=== PATIENT | male | born 1990 | race Two or more races ===

== ENCOUNTER 2024-08-12 08:19 | Emergency (ER) | payer MEDICAID, OTHER ==
[~2024-08-12] VITALS: Ht 177.8 cm; Wt 75.0 kg
--- NOTE | 2024-08-12 08:36 | ECG ---
[facility] Test Date: 2024-08-12 Test Time: 08:25:16 Pat Name: CANDICE ROY Department: ER Room: Gender: M Transport Specialist: ANNETTE : 1990 Requested By: JULIA TONY Order Number: [id number] Reading MD: Damián Palomino Measurements Intervals [place] Rate: 73 P: 0 [place]: 0 QRS: 21 QRSD: 108 T: 73 QT: 411 QTc: 453 Interpretive Statements Normal sinus rhythm RSR' in V1 or V2, probably normal variant Electronically Signed On 08-18-2024 16:42:36 PST by Damián Palomino Please click the below link to view image of tracing.
[2024-08-12] MEDS: SODIUM CHLORIDE 0.9% 1,000 ML IV ONE (08:46)
--- NOTE | 2024-08-12 08:50 | ED.PDOC ---
History of Present Illness HPI Comments 34Y M with PMHx HTN and alcoholic ketoacidosis presents to ED via EMS for chief complaint syncope episode. Pt had 8 beers and 1 mixed drink last night without dinner. Pt then woke up this morning and had syncope episode while in the shower. Upon EMS arrival, pt's girlfriend had taken patient out of the shower. Pt drank fruit punch and BS was 82 with EMS. Pt states he has not been able to keep food down and does not know if he is diabetic. Pt does not take any medications for his HTN. VS were stable with EMS. Pt is an ex-cigarette smoker and currently vapes. Pt denies illicit drug use. Chief Complaint: Syncope Time Seen by MD: 08:30 Reviewed Notes: Medications, Allergies Allergies: Coded Allergies: Penicillins (Verified Allergy, Unknown, 08/12/24) Information Source: Patient, Emergency Med Personnel Mode of Arrival: EMS Severity: Moderate Timing: Hours Duration: Since onset Prehospital treatment: None Past Medical History PAST MEDICAL HISTORY: HTN Past Medical History (Other): Alcoholic ketoacidosis Surgical History: Denies all surgeries Family History Family History: Unknown Social History Smoker: Quit Less Than 1 Year, Cigarettes, Other (currently vapes) Alcohol: Heavy Drugs: Denies Drug Use Lives In: Home Constitutional: denies: chills, diaphoresis, fatigue, fever, malaise, sweats, weakness, others EENTM: denies: blurred vision, double vision, ear bleeding, ear discharge, ear drainage, ear pain, ear ringing, eye pain, eye redness, hearing loss, mouth pain, mouth swelling, nasal discharge, nose bleeding, nose congestion, nose pain, photophobia, tearing, throat pain, throat swelling, voice changes, others Respiratory: denies: cough, hemoptysis, orthopnea, SOB at rest, shortness of breath, SOB with excertion, stridor, wheezing, others Cardiovascular: denies: chest pain, dizzy spells, diaphoresis, Dyspnea on exertion, edema, irregular heart beat, left arm pain, lightheadedness, palpitations, PND, syncope, others Gastrointestinal: denies: abdomen distended, abdominal pain, blood streaked bowels, constipated, diarrhea, dysphagia, difficulty swallowing, hematemesis, melena, nausea, poor appetite, poor fluid intake, rectal bleeding, rectal pain, vomiting, others Genitourinary: denies: burning, dysuria, flank pain, frequency, hematuria, incontinence, penile discharge, penile sore, pain, testicle pain, testicle swelling, urgency, others Neurological: denies: dizziness, fainting, headache, left sided numbness, left sided weakness, numbness, paresthesia, pre-existing deficit, right sided numbn ess, right sided weakness, seizure, speech problems, tingling, tremors, weakness, others Musculoskeletal: denies: back pain, gout, joint pain, joint swelling, muscle pain, muscle stiffness, neck pain, others Integumetry: denies: bruises, change in color, change in hair/nails, dryness, laceration, lesions, lumps, rash, wounds, others Allergic/Immunocompromised: denies: Difficulty Healing, Frequent Infections, Hives, Itching, others Hematologic/Lymphatic: denies: anemia, blood clots, easy bleeding, easy bruising, swollen glands, others Endocrine: denies: excessive hunger, excessive sweating, excessive thirst, excessive urination, flushing, intolerance to cold, intolerance to heat, unexplained weight gain, unexplained weight loss, others Psychiatric: denies: anxiety, bipolar disorder, depression, hopeless, panic disorder, schizophrenia, sleepless, suicidal, others All Other Systems: Reviewed and Negative Physical Exam General Appearance: Mild Distress, Normal HEENT: Normal ENT Inspection, Pharynx Normal, TMs Normal Neck: Full Range of Motion, Non-Tender, Normal, Normal Inspection Respiratory: Chest Non-Tender, Lungs Clear, No Accessory Muscle Use, No Respiratory Distress, Normal Breath Sounds Cardiovascular: No Edema, No JVD, No Murmur, No Gallop, Normal Peripheral Pulses, Regular Rate/Rhythm Breast Exam: Deferred Gastrointestinal: No Organomegaly, Non Tender, No Pulsatile Mass, Normal Bowel Sounds, Soft Genitalia: Deferred Pelvic: Deferred Rectal: Deferred Extremities: No calf tenderness, Normal capillary refill, Normal inspection, Normal range of motion, Non-tender, No pedal edema Musculoskeletal : Apperance: Normal Neurologic: Alert, information security engineer II-XII nml as Tested, No Motor Deficits, Normal Affect, Normal Mood, No Sensory Deficits Cerebellar Function: NOT DONE Reflexes: NOT DONE Skin: Dry, Normal Color, Warm Peripheral Pulses: 3+ Radial (R), 3+ Radial (L) Lymphatic: No Adenopathy Was a procedure done? Was a procedure done?: No Differential Dx Considerations may include: Alcohol abuse Electrolyte imbalance X-Ray, Labs, Meds, VS Vital Signs Date Time Temp Pulse Resp B/P (MAP) Pulse Ox O2 Delivery O2 Flow Rate FiO2 08/12/24 11:09 73 17 99 Room Air* 0 21 08/12/24 11:09 97.5 73 17 114/65 (81) 99 97.5 08/12/24 08:25 73 08/12/24 08:19 98.6 80 16 111/71 (84) 98 Lab Test 08/12/24 09:46 Range/Units Plasma/Serum Blood Alcohol 35.7 H <10 mg/dL Current Medications Medications (Trade) Dose Ordered Sig/Ayana Route Start Time Stop Time Status Last Admin Sodium Chloride 1,000 ml @ 1,000 mls/hr Q1H ONCE IV 08/12/24 08:45 08/12/24 09:44 DC 08/12/24 08:46 Thiamine HCl 100 mg ONCE ONCE IV 08/12/24 09:00 08/12/24 09:01 DC 08/12/24 09:14 Ondansetron HCl (Zofran) 4 mg ONCE ONCE IV 08/12/24 09:15 08/12/24 09:16 DC 08/12/24 09:20 Patient alert. Complaining of shaking. He does drink daily. Vitals stable. Answering all questions. Establish intravenous access. Was given fluids. Was given thiamine. Possible withdrawal. No leg swelling. No shortness a breath. Heart rate within normal limits. Counseled patient on effects of drinking for 15 minutes. He does vape. Counseled patient on effects of smoking for 15 minutes. Reviewed his history. No head injury. No sign of syncope. Possible dehydration. Possible excess use of alcohol. Explained to the patient. Was told to follow up with his primary care physician. Was told to come back if there is any problem. Time of 1ST Reevaluation: 09:00 Reevaluation 1ST: Unchanged Patient Education/Counseling: Diagnosis, Treatment Family Education/Counseling: No Family Present Departure 1 Departure Time of Disposition: 09:42 Impression: Primary Impression: Alcohol abuse Disposition: 01 HOME / SELF CARE / HOMELESS Condition: Good Discharged With: Self Critical Care Note Critical Care Time?: No Stability Stability form required: No Heart Score Heart Score: Heart Score Response (Comments) Value History Slightly Suspicious 0 EKG Normal 0 Age <45 0 Risk Factors 1 or 2 risk factors 1 Troponin Normal limit 0 Total 1 I personally scribed for JULIA TONY MD ([email or web address]) on 08/12/24 at 08:50. Electronically submitted by Jayne Sutton ([email or web address]). JULIA TONY MD Aug 12, 2024 08:50
[2024-08-12] MEDS: THIAMINE 100mg/ml INJ (200mg/2ml VIAL) IV ONE (09:14)
[2024-08-12] MEDS: ONDANSETRON HCL 4 MG/2 ML VIAL IV ONE (09:20)
[2024-08-12 11:09] VITALS: BP 114/65; PULSE 73; RESP 17; TEMP 97.5; O2SAT 99
== END 2024-08-12 11:46 | disposition home or self-care (01) ==
LOC: ER 08:19 → EDBD 08:19 → ER 11:46
DX: F10.10 Alcohol abuse, uncomplicated (principal); I10 Essential (primary) hypertension; Z87.891 Personal history of nicotine dependence; Z88.0 Allergy status to penicillin; Y90.0 Blood alcohol level of less than 20 mg/100 ml
CPT/HCPCS: 36415; 80320; 93005; 96361; 96374; 96375; 99284; J2405; J3411; J7030

== ENCOUNTER 2024-12-31 17:21 | Emergency (ER) | payer MEDICAID ==
[~2024-12-31] VITALS: Ht 177.8 cm; Wt 73.2 kg
[2024-12-31 17:25] VITALS: BP 122/81; PULSE 82; RESP 20; TEMP 98.4; O2SAT 98
[2024-12-31] MEDS: LIDOCAINE 1% HCL (LOCAL ANESTH.) INJ 20ML MDV ID ONE (17:58)
[2024-12-31] MEDS: TETANUS-DIPTH-ACEL PERTUSSIS 0.5ML SYR Tdap IM ONE (17:59)
--- NOTE | 2024-12-31 18:22 | ED.PDOC ---
HPI Comments PATIENT CAME IN DUE TO LACERATION TO LEFT THUMB. PT STATES HE WASUSING A RAZOR BLADE TO CUT A ZIP TIE OFF A BOX WHEN HE ACCIDENTLYSLICED THE TIP OF HIS LEFT THUMB AND NAIL. DENIES NUMBNESS OR WEAKNESS. Chief Complaint: Laceration Time Seen by MD: 17:50 Primary Care Provider: NONE Reviewed Notes: Nurses Notes, Medications, Allergies Allergies: Coded Allergies: Penicillins (Verified Allergy, Unknown, 08/12/24) Home Meds Active Scripts Ibuprofen (Ibuprofen) 800 Mg Tab, 1 TAB PO TID PRN for 5 Days, #15 TAB Prov:SUZIE GRAY YARN SKEINS EXAMINER 12/31/24 Amoxicillin & Pot Clavulanate (AUGMENTIN TABLET) 875 Mg Tb, 875 MG PO BID for 5 Days, #10 TAB Prov:SUZIE GRAY YARN SKEINS EXAMINER 12/31/24 Information Source: Patient Mode of Arrival: Ambulatory Complexity: Intermediate Laceration Length (cm): 1 Past Medical History PAST MEDICAL HISTORY: HTN Surgical History: Denies all surgeries Family History Family History: Unknown Social History Smoker: Quit Less Than 1 Year, Cigarettes, Other Alcohol: Heavy Drugs: Denies Drug Use Lives In: Home Constitutional: denies: chills, diaphoresis, fatigue, fever, malaise, sweats, weakness, others EENTM: denies: blurred vision, double vision, ear bleeding, ear discharge, ear drainage, ear pain, ear ringing, eye pain, eye redness, hearing loss, mouth pain, mouth swelling, nasal discharge, nose bleeding, nose congestion, nose pain, photophobia, tearing, throat pain, throat swelling, voice changes, others Respiratory: denies: cough, hemoptysis, orthopnea, SOB at rest, shortness of breath, SOB with excertion, stridor, wheezing, others Cardiovascular: denies: chest pain, dizzy spells, diaphoresis, Dyspnea on exertion, edema, irregular heart beat, left arm pain, lightheadedness, palpitations, PND, syncope, others Gastrointestinal: denies: abdomen distended, abdominal pain, blood streaked bowels, constipated, diarrhea, dysphagia, difficulty swallowing, hematemesis, melena, nausea, poor appetite, poor fluid intake, rectal bleeding, rectal pain, vomiting, others Genitourinary: denies: burning, dysuria, flank pain, frequency, hematuria, incontinence, penile discharge, penile sore, pain, testicle pain, testicle swelling, urgency, others Neurological: denies: dizziness, fainting, headache, left sided numbness, left sided weakness, numbness, paresthesia, pre-existing deficit, right sided numbness, right sided weakness, seizure, speech problems, tingling, tremors, weakness, others Musculoskeletal: denies: back pain, gout, joint pain, joint swelling, muscle pain, muscle stiffness, neck pain, others Integumetry: reports: laceration (LEFT THUMB DISTAL TIP); denies: bruises, change in color, change in hair/nails, dryness, lesions, lumps, rash, wounds, others Allergic/Immunocompromised: denies: Difficulty Healing, Frequent Infections, Hives, Itching, others Hematologic/Lymphatic: denies: anemia, blood clots, easy bleeding, easy bruising, swollen glands, others Endocrine: denies: excessive hunger, excessive sweating, excessive thirst, excessive urination, flushing, intolerance to cold, intolerance to heat, unexplained weight gain, unexplained weight loss, others Psychiatric: denies: anxiety, bipolar disorder, depression, hopeless, panic disorder, schizophrenia, sleepless, suicidal, others Physical Exam General Appearance: No Apparent Distress, Normal HEENT: Pharynx Normal Neck: Full Range of Motion, Non-Tender Respiratory: Lungs Clear, No Respiratory Distress, Normal Breath Sounds Cardiovascular: No Murmur, Normal Peripheral Pulses, Regular Rate/Rhythm Breast Exam: Deferred Gastrointestinal: Non Tender, Soft Genitalia: Deferred Pelvic: Deferred Rectal: Deferred Extremities: Normal capillary refill, Non-tender Musculoskeletal : Apperance: Normal Neurologic: Alert, assistant offset press operator II-XII nml as Tested, No Motor Deficits, Normal Affect, Normal Mood, No Sensory Deficits Cerebellar Function: Normal Reflexes: Normal Skin: Dry, Lacerations (LEFT THUMB DISTAL ASPECT WITH HANGING OF VAULT TIP AND 1/3 OF NAIL AT THE TIP BLEEDING CONTROLLED NO OBVIOUS FOREIGN BODY STRENGTH SENSORY MOTION INTACT), Normal Color, Warm Lymphatic: No Adenopathy Was a procedure done? Was a procedure done?: Yes Sedation Sedation?: No Informed consent obtained: Yes Laceration Repair : Location DISTAL TIP OF THUMB LEFT Length AVULSION 1 CM Anesthetic: Lidocaine, Without epi Laceration Repair Prep: Saline, Betadine Laceration Repair Wound Comple: epidermis/dermis repair Laceration Repair: Number of sutures (3), Simple Informed consent obtained: Yes Risks, benefits, and alternati: Yes Notes PATIENT TOLERATED WELL WITH MINIMAL BLOOD LOSS. Differential diagnosis Generic Laceration: Hematoma, Fracture, Retained Foriegn Body X-Ray, Labs, Meds, VS Vital Signs Date Time Temp Pulse Resp B/P (MAP) Pulse Ox O2 Delivery O2 Flow Rate FiO2 12/31/24 17: 98.4 82 20 122/81 (95) 98 98.4 12/31/24 17:25 82 20 98 Room Air 12/31/24 17:25 98.4 82 20 122/81 (95) 98 98.4 Current Medications Medications (Trade) Dose Ordered Sig/Ayana Route Start Time Stop Time Status Last Admin Lidocaine HCl (Xylocaine 1%) ONCE ONCE ID 12/31/24 18:00 12/31/24 18:01 DC 12/31/24 17:58 Diphtheria/ Tetanus/Acell Pertussis (Boostrix T-Dap) 0.5 ml ONCE ONCE IM 12/31/24 18:00 12/31/24 18:01 DC 12/31/24 17:59 X-Ray, Labs, Meds, VS Comment SEE PROCEDURE NOTE. SCRIPT PROPHYLACTIC ANTIBIOTICS. AND IBUPROFEN. TAKE MEDICATIONS PRESCRIBED SIDE EFFECTS DISCUSSED. ADVISED TO FOLLOW UP WITH HIS PCP URGENT CARE OR BACK HERE IN 2 DAYS FOR WOUND RE-EVALUATION SUTURE REMOVAL IN 5-7 DAYS. KEEP DRESSING ON FOR 48 HOURS MONITOR FOR SIGNS AND SYMPTOMS OF UNCONTROLLED BLEEDING OR INFECTION AND RETURN TO THE ER IMMEDIATELY. PATIENT INDICATES UNDERSTANDING AGREES WITH DISCHARGE PLAN OF CARE. Time of 1ST Reevaluation: 18:26 Reevaluation 1ST: Improved Patient Education/Counseling: Diagnosis, Treatment, Prognosis, Need For Follow Up Family Education/Counseling: No Family Present Departure 1 Departure Time of Disposition: 18:24 Impression: Primary Impression: Laceration of thumb with damage to nail Qualified Codes: S61.112A - Laceration without foreign body of left thumb with damage to nail, initial encounter Disposition: HOME / SELF CARE / HOMELESS Condition: Stable e-Prescriptions Ibuprofen (Ibuprofen) 800 Mg Tab 1 TAB PO TID PRN for 5 Days, #15 TAB Prov: SUZIE GRAY YARN SKEINS EXAMINER 12/31/24 Amoxicillin & Pot Clavulanate (AUGMENTIN TABLET) 875 Mg Tb 875 MG PO BID for 5 Days, #10 TAB Prov: SUZIE GRAY 12/31/24 Discharged With: Self Critical Care Note Critical Care Time?: No Stability Stability form required: No SUZIE GRAY Dec 31, 2024 18:21
[2024-12-31] MEDS ORDERED: IBUP-1456 PO (18:25)
[2024-12-31] MEDS ORDERED: AUG875T PO (18:25)
== END 2024-12-31 18:38 | disposition home or self-care (01) ==
LOC: ER 17:21
DX: S61.012A Laceration without foreign body of left thumb without damage to nail, initial encounter (principal); I10 Essential (primary) hypertension; Z79.899 Other long term (current) drug therapy; Z88.0 Allergy status to penicillin; W27.8XXA Contact with other nonpowered hand tool, initial encounter; Y93.89 Activity, other specified; Y92.89 Other specified places as the place of occurrence of the external cause; Y99.8 Other external cause status
CPT/HCPCS: 12001; 90471; 90715; 99283; J2003

== ENCOUNTER 2025-01-07 11:20 | Emergency (ER) | payer SELFPAY ==
[~2025-01-07] VITALS: Ht 180.3 cm; Wt 72.8 kg
[2025-01-07 11:34] VITALS: BP 130/73; PULSE 75; RESP 16; TEMP 98.9; O2SAT 97
--- NOTE | 2025-01-07 11:40 | ED.PDOC ---
History of Present Illness HPI Comments 34 y/o M presents for suture removal, today, following placement to his 1st digit on his left hand 1x week ago. Patient denies having any symptoms at this time. No concern for infection. Healing well. No complaints. Chief Complaint: Suture Removal Time Seen by MD: 11:30 Primary Care Provider: NONE Allergies: Coded Allergies: Penicillins (Verified Allergy, Unknown, 08/12/24) Home Meds Discontinued Scripts Ibuprofen (Ibuprofen) 800 Mg Tab, 1 TAB PO TID PRN for 5 Days, #15 TAB Prov:SUZIE GRAY ANTENNA SPECIALIST 12/31/24 Amoxicillin & Pot Clavulanate (AUGMENTIN TABLET) 875 Mg Tb, 875 MG PO BID for 5 Days, #10 TAB Prov:SUZIE GRAY ANTENNA SPECIALIST 12/31/24 Mode of Arrival: Ambulatory Past Medical History PAST MEDICAL HISTORY: HTN Surgical History: Denies all surgeries Family History Family History: Unknown Social History Smoker: Quit Less Than 1 Year, Cigarettes, Other Alcohol: Heavy Drugs: Denies Drug Use Lives In: Home All Other Systems: Reviewed and Negative (Comprehensive systems review obtained and negative except for what is stated in the HPI.) Physical Exam General Appearance: No Apparent Distress, Normal HEENT: Normal ENT Inspection, Pharynx Normal, TMs Normal Neck: Full Range of Motion, Non-Tender, Normal, Normal Inspection Respiratory: Chest Non-Tender, Lungs Clear, No Accessory Muscle Use, No Respiratory Distress, Normal Breath Sounds Cardiovascular: No Edema, No JVD, No Murmur, No Gallop, Normal Peripheral Pulses, Regular Rate/Rhythm Breast Exam: Deferred Gastrointestinal: No Organomegaly, Non Tender, No Pulsatile Mass, Normal Bowel Sounds, Soft Genitalia: Deferred Pelvic: Deferred Rectal: Deferred Extremities: No calf tenderness, Normal capillary refill, Normal inspection, Normal range of motion, Non-tender, No pedal edema Musculoskeletal : Apperance: Normal Neurologic: Alert, poultry tender II-XII nml as Tested, No Motor Deficits, Normal Affect, Normal Mood, No Sensory Deficits Cerebellar Function: Normal Reflexes: Normal Skin: Dry, Normal Color, Warm, Other (Left thumb with three sutures in place, one of them going through the nail, healing well, no signs of secondary infection. Small approximately 0.25 cm blister at the site of the lidocaine injection, no tenderness to palpation, clear fluid-filled, no pus. No skip lesions. No bullae. Full range of motion of the digit. Sensation intact to light touch throughout. Compartments soft.) Lymphatic: No Adenopathy Was a procedure done? Was a procedure done?: No Other Procedure Procedure suture removal Indication f/u from previous suture placement to 1st digit on left hand a week ago Anesthetic n/a Prep suture removal kit Success sutures removed w/o complications; patient tolerated procedure Informed consent obtained: Yes Risks, benefits, and alternati: Yes Differential Dx Considerations may include: suture removal , infection, deep space infection, cellulitis X-Ray, Labs, Meds, VS Vital Signs Date Time Temp Pulse Resp B/P (MAP) Pulse Ox O2 Delivery O2 Flow Rate FiO2 01/07/25 11:48 Room Air* 0 21 01/07/25 11:34 98.9 75 16 130/73 (92) 97 98.9 01/07/25 11:30 98.9 75 16 130/73 (92) 97 98.9 X-Ray, Labs, Meds, VS Comment 34-year-old male here today for suture removal. Vital signs stable, afebrile. Laceration healing well. No concern for secondary infection. Three sutures removed without complications. Patient tolerated the procedure well. Patient was discharged home with the wound care instructions and return precautions for signs of secondary infection. The patient was instructed to follow up with his primary care provider within 2-3 days for re-evaluation. Time of 1ST Reevaluation: 12:00 Reevaluation 1ST: Resolved Patient Education/Counseling: Diagnosis, Treatment Family Education/Counseling: No Family Present Departure 1 Departure Time of Disposition: 11:39 Impression: Primary Impression: Encounter for removal of sutures Disposition: 01 HOME / SELF CARE / HOMELESS Condition: Stable Critical Care Note Critical Care Time?: No Stability Stability form required: No Heart Score Heart Score: Heart Score Response (Comments) Value History N/A 0 EKG N/A 0 Age N/A 0 Risk Factors N/A 0 Troponin N/A 0 Total 0 I personally scribed for MARIA C GRIMALDO MD ([email or web address]) on 01/07/25 at 11:40. Electronically submitted by Ho Rahman ([email or web address]). MARIA C GRIMALDO MD Jan 07, 2025 11:40
== END 2025-01-07 11:49 | disposition home or self-care (01) ==
LOC: ER 11:20
DX: S61.012D Laceration without foreign body of left thumb without damage to nail, subsequent encounter (principal); I10 Essential (primary) hypertension; Z87.891 Personal history of nicotine dependence; Z79.899 Other long term (current) drug therapy; Z88.0 Allergy status to penicillin; X58.XXXD Exposure to other specified factors, subsequent encounter

== ENCOUNTER 2025-05-23 12:16 | Emergency (ER) | payer MEDICAID, OTHER ==
[~2025-05-23] VITALS: Ht 180.3 cm; Wt 70.5 kg
--- NOTE | 2025-05-23 12:31 | ECG ---
[facility] Test Date: 2025-05-23 Test Time: 12:21:55 Pat Name: CANDICE ROY Department: [facility] ED Patient ID: [id number] Room: Gender: M Java Spring Developer: JEFFREY : 1990 Requested By: EMERGENCY EMERGENCY Order Number: [id number] Reading MD: Damián Palomino Measurements Intervals [place] Rate: 66 P: -85 [place]: 92 QRS: 0 QRSD: 96 T: 70 QT: 389 QTc: 408 Interpretive Statements Ectopic atrial rhythm Short [place] interval ST elev, probable normal early repol pattern Electronically Signed On 05-23-2025 18:50:04 PDT by Damián Palomino Please click the below link to view image of tracing.
--- NOTE | 2025-05-23 13:17 | ECG ---
[facility] Test Date: 2025-05-23 Test Time: 13:16:29 Pat Name: CANDICE ROY Department: [facility] ED Patient ID: [facility]-[id number] Room: Gender: M Maintenance Technician: : 1990 Requested By: EMERGENCY EMERGENCY Order Number: [id number] Reading MD: Damián Palomino Measurements Intervals [place] Rate: 58 P: -89 [place]: 94 QRS: 8 QRSD: 96 T: 64 QT: 401 QTc: 394 Interpretive Statements Ectopic atrial rhythm Short [place] interval Electronically Signed On 05-23-2025 18:50:13 PDT by Damián Palomino Please click the below link to view image of tracing.
--- NOTE | 2025-05-23 13:40 | ED.PDOC ---
History of Present Illness HPI Comments 35 y/o M, with a history of anxiety, unmedicated HTN, and former tobacco use, presents with c/c of nonradiating, substernal chest pain. Patient endorses on sudden, unprovoked, and atraumatic onset of pain, yesterday, which has been persisting since. Pain is described as both sharp and pressure-like in quality. He states on being stress and anxious, lately. Denies any shortness of breath, palpitations, dizziness, lightheadedness, or further associated symptoms. Chief Complaint: Chest Pain Time Seen by MD: 12:20 Primary Care Provider: NONE Reviewed Notes: Nurses Notes, Medications, Allergies Allergies: Coded Allergies: Penicillins (Verified Allergy, Unknown, 08/12/24) Information Source: Patient Mode of Arrival: Ambulatory Severity: Moderate Timing: Days Duration: Since onset Prehospital treatment: None Past Medical History PAST MEDICAL HISTORY: Anxiety, HTN Surgical History: Denies all surgeries Family History Family History: Unknown Social History Smoker: Quit Less Than 1 Year, Cigarettes Alcohol: Heavy Drugs: Denies Drug Use Lives In: Home All Other Systems: Reviewed and Negative (Comprehensive systems review obtained and negative except for what is stated in the HPI.) Physical Exam General Appearance: Moderate Distress HEENT: Normal ENT Inspection, Pharynx Normal, TMs Normal Neck: Full Range of Motion, Non-Tender, Normal, Normal Inspection Respiratory: Chest Non-Tender, Lungs Clear, No Accessory Muscle Use, No Respiratory Distress, Normal Breath Sounds Cardiovascular: No Edema, No JVD, No Murmur, No Gallop, Normal Peripheral Pulses, Regular Rate/Rhythm Breast Exam: Deferred Gastrointestinal: No Organomegaly, Non Tender, No Pulsatile Mass, Normal Bowel Sounds, Soft Genitalia: Deferred Pelvic: Deferred Rectal: Deferred Extremities: No calf tenderness, Normal capillary refill, Normal inspection, Normal range of motion, Non-tender, No pedal edema Musculoskeletal : Apperance: Normal Neurologic: Alert, manager skilled II-XII nml as Tested, No Motor Deficits, Normal Affect, Normal Mood, No Sensory Deficits Cerebellar Function: Normal Reflexes: Normal Skin: Dry, Normal Color, Warm Peripheral Pulses: 3+ Radial (R), 3+ Radial (L) Lymphatic: No Adenopathy Was a procedure done? Was a procedure done?: No EKG EKG #1: Pulse Rate (adult): 66 [place]: Normal Cardiac Rhythm: NSR Block: None Hypertrophy: None ST: Normal EKG #2: Pulse Rate (adult): 58 [place]: Normal Cardiac Rhythm: NSR Block: None Hypertrophy: None ST: Normal Differential Dx Considerations may include: UT, PE, ACS, URI, PNA, anxiety, angina, gastritis, among others X-Ray, Labs, Meds, VS Vital Signs Date Time Temp Pulse Resp B/P (MAP) Pulse Ox O2 Delivery O2 Flow Rate FiO2 05/23/25 14:26 60 16 99 Room Air 05/23/25 14:26 98.3 60 16 119/71 (87) 99 98.3 05/23/25 13:40 58 05/23/25 13:16 58 05/23/25 12:21 66 05/23/25 12:19 98.2 66 20 98.2 Lab Test 05/23/25 13:30 05/23/25 12:34 Range/Units Troponin I High Sensitivity < 3 L < 3 L </=54 ng/L Patient alert. Complaining of chest pain. Vitals stable. Answering questions. Cardiac marker within normal limits. EKG reviewed does not show any acute changes. Heart rate within normal limits. Respiratory rate within normal limits. Blood pressure within normal limits. Saturation pristine on room air. No leg swelling. No accessory muscle use. No distress. No acute process. No risk factors for coronary artery disease. Explained to the patient. Was told to follow up with his primary care physician. Was told to come back if there is any problem. Time of 1ST Reevaluation: 12:50 Reevaluation 1ST: Improved Patient Education/Counseling: Diagnosis, Treatment, Need For Follow Up Family Education/Counseling: No Family Present SEPSIS Sepsis Screen Date sepsis recognized/suspect: May 23, 2025 Time Sepsis recognized/suspect: 1216 Recent Procedure: No Respiratory Rate >20: No Heart Rate >90: No Temp<36 C (96.8 F) or >38.3 C: No SBP <90 or MAP <65 mmHG: No New Acute Mental Status Change: No Is the patient on CPAP, BIPAP,: No Physician Orders Electrocardigram (05/23/25 15:25) Aspirin Tablet (05/23/25 16:00) Vital Signs Date Time Temp Pulse Resp B/P (MAP) Pulse Ox O2 Delivery O2 Flow Rate FiO2 05/23/25 14:26 60 16 99 Room Air 05/23/25 14:26 98.3 60 16 119/71 (87) 99 98.3 05/23/25 13:40 58 05/23/25 13:16 58 05/23/25 12:21 66 05/23/25 12:19 98.2 66 20 98.2 Departure 1 Departure Time of Disposition: 15:45 Impression: Primary Impression: Musculoskeletal chest pain Disposition: HOME / SELF CARE / HOMELESS Condition: Good Discharged With: Self Critical Care Note Critical Care Time?: No Stability Stability form required: No Heart Score Heart Score: Heart Score Response (Comments) Value History Slightly Suspicious 0 EKG Normal 0 Age <45 0 Risk Factors No known risk factors 0 Troponin Normal limit 0 Total 0 I personally scribed for JULIA TONY MD ([email or web address]) on 05/23/25 at 13:40. Electronically submitted by Ho Rahman ([email or web address]). JULIA TONY MD May 23, 2025 13:40
[2025-05-23 16:29] VITALS: BP 126/74; PULSE 66; RESP 18; TEMP 98; O2SAT 98
== END 2025-05-23 16:31 | disposition home or self-care (01) ==
LOC: ER 12:16
DX: R07.89 Other chest pain (principal); F43.9 Reaction to severe stress, unspecified; I10 Essential (primary) hypertension; F41.9 Anxiety disorder, unspecified; Z88.0 Allergy status to penicillin
CPT/HCPCS: 36415; 84484; 93005

== ENCOUNTER 2025-07-02 13:49 | Emergency (ER) | payer MEDICAID, OTHER ==
[~2025-07-02] VITALS: Ht 180.3 cm; Wt 68.8 kg
--- NOTE | 2025-07-02 14:33 | ED.PDOC ---
HPI Comments 35-year-old male that presents to the ED for complaint of laceration. 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 Patient in the ED has a noted laceration radiating to the nail bed. Patient has wound wrapped in gauze by triage staff. Patient in the ED rates the pain 10/10 constant with no associated exacerbating or relieving factors. The patient in the ED otherwise stable vitals. The patient denies any other symptoms at this time. Chief Complaint: Laceration Time Seen by MD: 14:30 Primary Care Provider: NONE Reviewed Notes: Medications, Allergies Allergies: Coded Allergies: Penicillins (Verified Allergy, Unknown, 08/12/24) Home Meds Active Scripts Acetaminophen (Acetaminophen) 500 Mg Tab, 500 MG PO Q6HP PRN for 10 Days, #40 TAB 0 Refills Prov:KADEN STOUT POT PRESS OPERATOR 07/02/25 Ciprofloxacin Hcl (Cipro) 500 Mg Tab, 1 TAB PO BID for 7 Days, #14 TAB 0 Refills Prov:KADEN STOUT POT PRESS OPERATOR 07/02/25 Information Source: Patient Mode of Arrival: Ambulatory Complexity: Complex Laceration Length (cm): 2 Past Medical History PAST MEDICAL HISTORY: Anxiety, HTN Surgical History: Denies all surgeries Family History Family History: Unknown Social History Smoker: Quit Less Than 1 Year, Cigarettes Alcohol: Heavy Drugs: Denies Drug Use Lives In: Home Constitutional: denies: chills, diaphoresis, fatigue, fever, malaise, sweats, weakness, others EENTM: denies: blurred vision, double vision, ear bleeding, ear discharge, ear drainage, ear pain, ear ringing, eye pain, eye redness, hearing loss, mouth pain, mouth swelling, nasal discharge, nose bleeding, nose congestion, nose pain, photophobia, tearing, throat pain, throat swelling, voice changes, others Respiratory: denies: cough, hemoptysis, orthopnea, SOB at rest, shortness of breath, SOB with excertion, stridor, wheezing, others Cardiovascular: denies: chest pain, dizzy spells, diaphoresis, Dyspnea on exertion, edema, irregular heart beat, left arm pain, lightheadedness, palpitations, PND, syncope, others Gastrointestinal: denies: abdomen distended, abdominal pain, blood streaked bowels, constipated, diarrhea, dysphagia, difficulty swallowing, hematemesis, melena, nausea, poor appetite, poor fluid intake, rectal bleeding, rectal pain, vomiting, others Genitourinary: denies: burning, dysuria, flank pain, frequency, hematuria, incontinence, penile discharge, penile sore, pain, testicle pain, testicle swelling, urgency, others Neurological: denies: dizziness, fainting, headache, left sided numbness, left sided weakness, numbness, paresthesia, pre-existing deficit, right sided numbness, right sided weakness, seizure, speech problems, tingling, tremors, weakness, others Musculoskeletal: denies: back pain, gout, joint pain, joint swelling, muscle pain, muscle stiffness, neck pain, others Integumetry: reports: laceration (Left hand middle finger); denies: bruises, change in color, change in hair/nails, dryness, lesions, lumps, rash, wounds, others Allergic/Immunocompromised: denies: Difficulty Healing, Frequent Infections, Hives, Itching, others Hematologic/Lymphatic: denies: anemia, blood clots, easy bleeding, easy bruising, swollen glands, others Endocrine: denies: excessive hunger, excessive sweating, excessive thirst, excessive urination, flushing, intolerance to cold, intolerance to heat, unexplained weight gain, unexplained weight loss, others Psychiatric: denies: anxiety, bipolar disorder, depression, hopeless, panic disorder, schizophrenia, sleepless, suicidal, others All Other Systems: Reviewed and Negative Physical Exam Exam Comments L 3rd phalanx: 2 cm lac. jagged edges. no tendon visible. fds/fdp intact. cap < 3 General Appearance: No Apparent Distress, Normal HEENT: Normal ENT Inspection, Pharynx Normal, TMs Normal Neck: Full Range of Motion, Non-Tender, Normal, Normal Inspection Respiratory: Chest Non-Tender, Lungs Clear, No Accessory Muscle Use, No Respiratory Distress, Normal Breath Sounds Cardiovascular: No Edema, No JVD, No Murmur, No Gallop, Normal Peripheral Pulses, Regular Rate/Rhythm Breast Exam: Deferred Gastrointestinal: No Organomegaly, Non Tender, No Pulsatile Mass, Normal Bowel Sounds, Soft Genitalia: Deferred Pelvic: Deferred Rectal: Deferred Extremities: No calf tenderness, Normal capillary refill, Normal inspection, Normal range of motion, Non-tender, No pedal edema Musculoskeletal : Apperance: Normal Neurologic: Alert, mix crusher operator II-XII nml as Tested, No Motor Deficits, Normal Affect, Normal Mood, No Sensory Deficits Cerebellar Function: Normal Reflexes: Normal Skin: Dry, Normal Color, Warm Lymphatic: No Adenopathy Was a procedure done? Was a procedure done?: No Differential diagnosis Generic Laceration: Fracture, Neurovascular Injury, Tendon Injury, Abrasion/Contusion, Laceration, Avulsion, Amputation X-Ray, Labs, Meds, VS Vital Signs Date Time Temp Pulse Resp B/P (MAP) Pulse Ox O2 Delivery O2 Flow Rate FiO2 07/02/25 15:58 86 20 100 Room Air 07/02/25 15:58 98.0 81 20 126/62 (83) 100 98.0 07/02/25 13:51 98.6 86 20 126/69 100 98.6 Current Medications Medications (Trade) Dose Ordered Sig/Ayana Route Start Time Stop Time Status Last Admin Cefazolin Sodium (Ancef Intramuscular) 1 gm ONCE ONCE IM 07/02/25 15:30 07/02/25 15:31 DC 07/02/25 15:30 Neomycin/ Polymyxin/ Bacitracin (Triple Antibiotic) 1 applic ONCE ONCE TOP 07/02/25 16:15 07/02/25 16:16 DC 07/02/25 16:29 [place] [address] Ph: [phone] DIAGNOSTIC IMAGING Diagnostic Imaging Report : [id number] Signed PATIENT: CANDICE ROY ACCT: [id number] UNIT: [id number] : 1990 LOC: ER ROOM / BED: / AGE / SEX: 35 / M ADM STATUS: REG ER SERVICE [id number] ORDERING PHYSICIAN: KADEN STOUT NP PROCEDURE(s): LHAN - L HAND 3V XRAY REASON: injury to 3rd phalanx ORDER NUMBER(s): [id number], ACCESSION NUMBER(s): [id number] CLINICAL INDICATION: injury to 3rd phalanx TECHNIQUE: 3 views of the left hand were performed. XY L HAND 3V XRAY Comparison: None FINDINGS/IMPRESSION: 1. Comminuted displaced fracture of the left 3rd finger distal phalangeal tuft, likely an open fracture. 2. No other fractures are identified about the left hand. ATED BY: GAGE LOPEZ MD DICTATED DATE/TIME: 07/02/25 152 SIGNED BY: GAGE LOPEZ MD SIGNED DATE/TIME: 07/02/251520 CC: X-Ray, Labs, Meds, VS Comment Patient arrives alert and oriented, ABC's intact, afebrile, vital signs stable, saturating well in room air Diagnostic imaging ordered by me and results interpreted by radiology : FINDINGS/IMPRESSION: 1. Comminuted displaced fracture of the left 3rd finger distal phalangeal tuft, likely an open fracture. 2. No other fractures are identified about the left hand. The skin edges of the laceration were infiltrated with 1% lidocaine The skin surrounding the laceration was scrubbed with Betadine soaked sterile gauze The laceration was irrigated under high-pressure with a 60 mL syringe A total of 1L sterile water was used. Including diluted Betadine solution The laceration was prepped in sterile fashion with sterile drapes On examination under direct light, there was no foreign body seen The laceration was repaired in simple interrupted technique There was no continuing bleeding on repair. There were no complications related to repair AB rx Education and follow-up instructions provided Wound check in 2 days Return sooner for signs of infection such as fevers, increased pain, redness, green, yellow discharge, or any concerns Keep wound dry for 24 to 48 hours; dry dressing may be changed Protect from sunlight and keep area clean and dry. Use soap and water if it gets dirty High risk of possible scarring and education provided on ways to minimize scarring after wound heals Also provided education on possible complications post procedure including wound dehiscence, infection, etc. Additional MDM Review of External, Non-ED records: External records reviewed. Discussion with independent historian (EMS, family) history obtained from the patient/parents (if applicable) at bedside Chronic conditions affecting care: None Social determinants of health affecting care: None Consideration of admission (observation or admission): I considered escalation of care to admission for this patient, however given the reassuring workup, the patient is safe for outpatient management. Discussion with the Radiology: No Tests considered but not performed: Prescription medication considered but not given: Time of 1ST Reevaluation: 15:00 Reevaluation 1ST: Improved Patient Education/Counseling: Diagnosis, Treatment Family Education/Counseling: No Family Present Departure 1 Departure Time of Disposition: 16:41 Impression: Primary Impression: Phalanx, distal fracture of finger Qualified Codes: S62.663B - Nondisplaced fracture of distal phalanx of left middle finger, initial encounter for open fracture Disposition: HOME / SELF CARE / HOMELESS Condition: Fair Additional Instructions: Patient has a follow up with primary care provider for fracture. e-Prescriptions Acetaminophen (Acetaminophen) 500 Mg Tab 500 MG PO Q6HP PRN for 10 Days, #40 TAB 0 Refills Prov: KADEN STOUT POT PRESS OPERATOR 07/02/25 Ciprofloxacin Hcl (Cipro) 500 Mg Tab 1 TAB PO BID for 7 Days, #14 TAB 0 Refills Prov: KADEN STOUT POT PRESS OPERATOR 07/02/25 Comments A PCP make sure you follow up that [facility] in two days for wound check. Need ortho follow up Critical Care Note Critical Care Time?: No Stability Stability form required: No Heart Score Heart Score: Heart Score Response (Comments) Value History N/A 0 EKG N/A 0 Age N/A 0 Risk Factors N/A 0 Troponin N/A 0 Total 0 I personally scribed for KADEN STOUT POT PRESS OPERATOR ([email or web address]) on 07/02/25 at 14:33. Electronically submitted by Cody Phillip ([email or web address]). I personally scribed for KADEN STOUT POT PRESS OPERATOR ([email or web address]) on 07/02/25 at 14:36. Electronically submitted by Cody Phillip ([employer]). I personally scribed for KADEN STOUT POT PRESS OPERATOR ([email or web address]) on 07/02/25 at 15:31. Electronically submitted by Cody Phillip ([email or web address]). KADEN STOUT POT PRESS OPERATOR Jul 02, 2025 14:33
--- NOTE | 2025-07-02 15:23 | DVH ---
CLINICAL INDICATION: injury to 3rd phalanx TECHNIQUE: 3 views of the left hand were performed. XY L HAND 3V XRAY Comparison: None FINDINGS/IMPRESSION: 1. Comminuted displaced fracture of the left 3rd finger distal phalangeal tuft, likely an open fractu re. 2. No other fractures are identified about the left hand.
[2025-07-02] MEDS: ceFAZolin IM 1GM/2.5ML STERILE WATER IM ONE (15:30)
[2025-07-02 15:58] VITALS: BP 126/62; PULSE 86; RESP 20; TEMP 98; O2SAT 100
[2025-07-02] MEDS ORDERED: CIPR-173 PO (16:22)
[2025-07-02] MEDS ORDERED: ACET500T58 PO (16:22)
[2025-07-02] MEDS: NEOMYCIN-BACITRACIN-POLYM UNITDOSE PKG TOP OINT TOP ONE (16:29)
== END 2025-07-02 16:48 | disposition home or self-care (01) ==
LOC: ER 13:51
DX: S61.313A Laceration without foreign body of left middle finger with damage to nail, initial encounter (principal); I10 Essential (primary) hypertension; F41.9 Anxiety disorder, unspecified; F10.90 Alcohol use, unspecified, uncomplicated; Z79.899 Other long term (current) drug therapy; Z88.0 Allergy status to penicillin; Z87.891 Personal history of nicotine dependence; X58.XXXA Exposure to other specified factors, initial encounter; Y93.89 Activity, other specified; Y92.89 Other specified places as the place of occurrence of the external cause; Y99.8 Other external cause status; Y90.9 Presence of alcohol in blood, level not specified
CPT/HCPCS: 12001; 73130; 96372; 99283; A4649; J0690